=== PATIENT | female | born 1985 | race Caucasian/White ===

== ENCOUNTER → 2016-12-21 | Outpatient (CLI) | payer OTHER ==
[~2016-12-21] MED LIST: DEPO-PROVER150 MG/M1 IM
== END ==
LOC: COL.RAD 10:34
DX: M50.322 Other cervical disc degeneration at C5-C6 level (principal)

== ENCOUNTER → 2016-12-21 | Outpatient (CLI) | payer OTHER ==
[2016-12-21 17:35] LABS: BASO # 0.1 (0.0-0.2); BASO % 0.6 % (0.0-2.0); EOS # 0.2 (0.0-0.7); EOS % 1.4 % (0-4.0); GRAN # 6.9 (1.4-6.5); GRAN % 64.8 % (42.2-75.2); HEMATOCRIT 42.4 % (37.0-47.0); HEMOGLOBIN 13.7 g/dl (12.5-16.0); LYMPH # 2.9 (1.2-3.4); LYMPH % 27.2 % (20.0-51.0); MEAN CELL VOLUME 95 fl (80.0-100.0); MEAN CORPUSCULAR HEMOGLOBIN 31 pg (27.0-31.0); MEAN CORPUSCULAR HGB CONC 32 g/dl (33.0-37.0); MEAN PLATELET VOLUME 10.4 fl (7.4-10.4); MONO # 0.6 (0.1-0.6); MONO % 5.7 % (1.7-9.3); PLATELET COUNT 289 K/mm3 (130-400); RED BLOOD COUNT 4.45 M/mm3 (4.10-5.30); REDCELL DISTRIBUTION WIDTH-CV 12.3 % (11.5-14.5); WHITE BLOOD COUNT 10.7 K/mm3 (4.8-10.8)
[2016-12-21 18:18] LABS: ADJUSTED CALCIUM 9.5 mg/dL (8.4-10.2); ALBUMIN 4.6 gm/dL (3.5-5.0); BILIRUBIN,TOTAL 0.6 mg/dL (0.0-1.0); CREATININE, serum 0.58 mg/dL (0.52-1.25); POTASSIUM 4.4 mmol/L (3.4-5.0)
[2016-12-21 18:48] LABS: THYROID STIMULATING HORMONE 2.45 uIU/mL (0.465-4.680)
== END ==
LOC: ZLAB.FHCC 13:20
DX: Z01.89 Encounter for other specified special examinations (principal)

== ENCOUNTER → 2017-03-23 | Outpatient (CLI) | payer OTHER ==
[2017-03-23 17:17] LABS: BASO # 0.1 (0.0-0.2); BASO % 0.6 % (0.0-2.0); EOS # 0.2 (0.0-0.7); EOS % 1.7 % (0-4.0); GRAN # 5.9 (1.4-6.5); GRAN % 60.6 % (42.2-75.2); HEMATOCRIT 39.7 % (37.0-47.0); HEMOGLOBIN 13.1 g/dl (12.5-16.0); LYMPH # 2.9 (1.2-3.4); LYMPH % 29.5 % (20.0-51.0); MEAN CELL VOLUME 92 fl (80.0-100.0); MEAN CORPUSCULAR HEMOGLOBIN 30 pg (27.0-31.0); MEAN CORPUSCULAR HGB CONC 33 g/dl (33.0-37.0); MEAN PLATELET VOLUME 9.8 fl (7.4-10.4); MONO # 0.7 (0.1-0.6); MONO % 7.3 % (1.7-9.3); PLATELET COUNT 338 K/mm3 (130-400); RED BLOOD COUNT 4.31 M/mm3 (4.10-5.30); REDCELL DISTRIBUTION WIDTH-CV 12.3 % (11.5-14.5); WHITE BLOOD COUNT 9.8 K/mm3 (4.8-10.8)
[2017-03-23 17:40] LABS: ERYTHROCYTE SEDIMENTATION RATE 8 mm/hr (0-20)
== END ==
LOC: COL.LAB 16:35 → COL.RAD 16:35
DX: M50.322 Other cervical disc degeneration at C5-C6 level (principal)

== ENCOUNTER 2020-01-13 21:26 | Emergency (ER) | payer SELFPAY ==
[~2020-01-13] VITALS: Ht 172.7 cm; Wt 72.7 kg
[2020-01-13 21:40] VITALS: BP 115/70; TEMP 97.8
[2020-01-13 22:02] LABS: COLLECTION METHOD CLEAN CATCH
[2020-01-13 22:14] LABS: MUCOUS Present /lpf; PH 8 (5-8); SQUAMOUS EPITHELIAL 0-2 /hpf; URINE APPEARANCE Clear; URINE BACTERIA Rare /hpf; URINE BILIRUBIN Negative (NEGATIVE); URINE BLOOD 1+ (NEGATIVE); URINE COLOR Straw; URINE GLUCOSE Negative (NEGATIVE); URINE KETONE Negative (NEGATIVE); URINE LEUKOCYTE ESTERASE 2+ (NEGATIVE); URINE NITRATE Negative (NEGATIVE); URINE PROTEIN(semi-quant) Negative (NEGATIVE); URINE RBC 0-2 /hpf; URINE UROBILINOGEN Negative (NEGATIVE)
[2020-01-13] MEDS ORDERED: AMOXICILLIN 8751 TAB PO (23:36)
[2020-01-13 23:58] LABS: BASO # 0.1 (0.0-0.2); BASO % 0.5 % (0.0-2.0); EOS # 0.3 (0.0-0.7); EOS % 1.8 % (0-4.0); GRAN # 9.7 (1.4-6.5); GRAN % 62.3 % (42.2-75.2); HEMATOCRIT 39.2 % (37.0-47.0); LYMPH # 4.2 (1.2-3.4); LYMPH % 26.9 % (20.0-51.0); MEAN CELL VOLUME 92 fl (80.0-100.0); MEAN CORPUSCULAR HEMOGLOBIN 30 pg (27.0-31.0); MEAN CORPUSCULAR HGB CONC 33 g/dl (33.0-37.0); MEAN PLATELET VOLUME 9.8 fl (7.4-10.4); MONO # 1.3 (0.1-0.6); PLATELET COUNT 339 K/mm3 (130-400); RED BLOOD COUNT 4.27 M/mm3 (4.10-5.30); REDCELL DISTRIBUTION WIDTH-CV 13.2 % (11.5-14.5)
[2020-01-14 00:08] LABS: BILIRUBIN,TOTAL 0.1 mg/dL (0.0-1.0); CALCIUM 9.3 mg/dL (8.4-10.2); CREATININE, serum 0.42 (0.52-1.25); POTASSIUM 3.9 mmol/L (3.4-5.0); TOTAL PROTEIN 7.6 gm/dL (6.4-8.2)
[2020-01-14 00:16] LABS: ALBUMIN 4.3 gm/dL (3.5-5.0)
[2020-01-14 01:09] VITALS: PULSE 76
== END 2020-01-14 01:09 | disposition home or self-care (01) ==
LOC: COL.ER 21:26
PROVIDERS: Emergency Medicine
DX: N39.0 Urinary tract infection, site not specified (principal)
CPT/HCPCS: A4216; J0696; J2765; J7030

== ENCOUNTER 2020-08-11 18:03 | Outpatient (CLI) | payer MEDICAID ==
[~2020-08-11] VITALS: Ht 157.5 cm; Wt 84.1 kg
[~2020-08-11 18:03] MED LIST changes: +AMOXICILLIN 8751 TAB PO; +PRENATAL TABLET PO
--- NOTE | 2020-08-11 18:15 | NUR ---
Pt arrived on unit ambulatory, escorted by significant other and with complaints of decreased movement. Pt also reports occasional contractions but denies any leaking of fluid and/or vaginal bleeding. EFM and toco monitors started. Vital signs WNL. During assessment pt reports issues with vomiting for the last 2 days and only able to keep small amounts of water and fruit down. Pt reports no one else in the household is sick.
[2020-08-11 18:29] VITALS: BP 125/65; PULSE 88; TEMP 98.3
[2020-08-11 19:15] VITALS: BP 122/71; PULSE 88
--- NOTE | 2020-08-11 20:15 | NUR ---
Orders for discharge home received. Discharge instructions reviewed with pt and at the bedside. Both verbalized an understanding, agreed with the plan and state no questions or concerns at this time.
== END 2020-08-11 20:40 | disposition home or self-care (01) ==
LOC: LDRO 18:03 → LDR 19:19 → LDRO 20:40
DX: O36.8131 Decreased fetal movements, third trimester, fetus 1 (principal); Z3A.39 39 weeks gestation of pregnancy
CPT/HCPCS: J2405; J7120

== ENCOUNTER 2020-08-17 09:05 | Inpatient (IN) | payer MEDICAID ==
[~2020-08-17] VITALS: Ht 160 cm; Wt 84.1 kg
[2020-08-17] VITALS (54 sets, daily range): BP systolic 104–182; BP diastolic 54–90; PULSE 68–108; TEMP 97.4–98.2
--- NOTE | 2020-08-17 07:30 | NUR ---
0715- 40.2 G3L2 arrives on unit for scheduled IOL. Ambulatory to LDR1 with spouse. Oriented to room. Instructed to change into gown. 0730- Patient resting in wedge left position. EFM explained and applied. Patient denies any LOF, VB, or regular contractions. Reports normal movement. 0738- IV started in left wrist. Routine labs obtained via IV start site. LR infusing. OB assessment completed, and consent forms explained and signed using traffic warehouse supervisor. Number [id number]. 0830- Pitocin explaned and started at 2mu per protocol.
[2020-08-17 08:38] LABS: BASO % 0.3 % (0.0-2.0); EOS # 0.1 (0.0-0.7); GRAN # 8.1 (1.4-6.5); GRAN % 69.6 % (42.2-75.2); HEMATOCRIT 37.5 % (37.0-47.0); HEMOGLOBIN 12.5 g/dl (12.5-16.0); LYMPH # 2.7 (1.2-3.4); LYMPH % 23.2 % (20.0-51.0); MEAN CELL VOLUME 92 fl (80.0-100.0); MEAN CORPUSCULAR HEMOGLOBIN 31 pg (27.0-31.0); MEAN CORPUSCULAR HGB CONC 33 g/dl (33.0-37.0); MEAN PLATELET VOLUME 10.2 fl (7.4-10.4); MONO # 0.7 (0.1-0.6); MONO % 5.6 % (1.7-9.3); PLATELET COUNT 279 K/mm3 (130-400); RED BLOOD COUNT 4.08 M/mm3 (4.10-5.30); REDCELL DISTRIBUTION WIDTH-CV 13.6 % (11.5-14.5)
--- NOTE | 2020-08-17 14:15 | NUR ---
1415- Patient requesting epidural. LR bolus started. 1425- Erma Sarmiento DARKROOM TECHNICIAN notified patient requesting epidura. Patient assisted to sit on edge of bed. 1445- Erma Sarmiento CRNA at bedside for epidural placement. 1455- Test dose administered by Erma Sarmiento CRNA. See vital sign flow record. 1505- Patient repositioned wedge left. Safety precautions reviewed with patient who verbalizes understanding. Resting with call light within reach. 1530- Edwards placed. SVE 5/80/-2. Carole care provided and patient wedge right with left leg in stirrups. Denies questions or needs at this time. Resting peacefully with call light within reach.
--- NOTE | 2020-08-17 15:45 | NUR ---
1545- Intermittent late decels. Patient repositoined. Will cont. to monitor. 1615- Intermittent late and early decels. Patient repositioned. Will cont. to monitor. Dr. Murphy remains on nursing unit.
--- NOTE | 2020-08-17 16:45 | NUR ---
3857- Recurrent lates noted with contractions. Patient repositioned. LR bolus initiated. RN remains at bedside. Will cont. to monitor.
--- NOTE | 2020-08-17 17:00 | NUR ---
1700- Intermittent late and early decels noted. Patient repositioned. Will continue to monitor.
--- NOTE | 2020-08-17 17:47 | NUR ---
1747- Intermittent variable and early decels noted. SVE 10100/0. Roles updated on patient. See physician notification. compounding scaler and nursery updated. 1800- Roles at bedside for delivery. Edwards catheter removed. Patient repositioned in footplates. Patient instructed on pushing. 180- Patient begins to push with contractions with Dr. Murphy at bedside. 1810- Bedside report given to Kim WELDON who assumes care of patient at this time.
--- NOTE | 2020-08-17 18:10 | NUR ---
181- Report received. Care assumed. Pt continuing to pushing with Dr. Murphy at the bedside. 1815- of female . placed on mom's abdomen. Cords clamped and cut. Care of the given to nursery RN at the bedside. 1820- of placenta. Moderate amount of lochia. Fundus firm with massage per Dr. Murphy. Pitocin started at 333ml/hr per order and protocol. 183- Methergine IM x1 given per order. See EMAR for details.
--- NOTE | 2020-08-17 21:00 | NUR ---
Pt up to the bathroom with assistance and without complications. Pt was able to void. Carole-care done. Pt transferred to room 208 via wheelchair. Oriented to room and bed. Call light within reach. Plan of care reviewed with pt and at the bedside.
[2020-08-18 02:30] VITALS: BP 123/59; PULSE 88; TEMP 97.6
[2020-08-18 07:45] VITALS: BP 126/55; PULSE 91; TEMP 97.8
[2020-08-18] MEDS ORDERED: IBU600 MG PO (08:56)
[2020-08-18] MEDS ORDERED: PERCOCET 325 MG1 TA2 PO (08:56)
--- NOTE | 2020-08-18 10:21 | NUR ---
Initial visit; Parents thanked for offering congratulations for the of their daughter. [employer] Supervisor thanked family for choosing our hospital.
[2020-08-18 12:45] VITALS: BP 125/68; PULSE 78; TEMP 97.6
[2020-08-18 17:20] VITALS: BP 103/53; PULSE 79
[2020-08-18 20:00] VITALS: BP 120/65; PULSE 98; TEMP 98.3
[2020-08-19 04:00] VITALS: BP 128/69; PULSE 79; TEMP 98.3
[2020-08-19 08:00] VITALS: BP 111/67; PULSE 92; TEMP 98.4
--- NOTE | 2020-08-19 08:00 | NUR ---
Patient reports feeling of numbness in her right hand and arm. Patient able to squeeze this nurses hand and full range of motion noted. Dr. Murphy in room and report to Dr. Murphy.
--- NOTE | 2020-08-19 10:45 | NUR ---
Patient discharge instructions reviewed with her and . Appointment reviewed. Script for percocet given and explained motrin script to pickling operator at pharmacy. Patient understands.
== END 2020-08-19 11:05 | disposition home or self-care (01) | DRG 806 ==
LOC: OB 09:05 → LDR 09:05 → OB 11:18
PROVIDERS: ADMIT Obstetrics & Gynecology
PROC: 10E0XZZ Delivery of Products of Conception, External Approach (ICD-10-PCS; principal; 2020-08-17)
PROC: 10907ZC Drainage of Amniotic Fluid, Therapeutic from Products of Conception, Via Natural or Artificial Opening (ICD-10-PCS; 2020-08-17)
DX: O48.0 Post-term pregnancy (principal); O72.1 Other immediate postpartum hemorrhage; Z37.0 Single live birth; O34.13 Maternal care for benign tumor of corpus uteri, third trimester; D25.9 Leiomyoma of uterus, unspecified; Z3A.40 40 weeks gestation of pregnancy
CPT/HCPCS: J2210; J2590; J7120

== ENCOUNTER 2021-01-30 18:14 | Observation (INO) | payer MEDICAID ==
[~2021-01-30] VITALS: Ht 160 cm; Wt 71.8 kg
[~2021-01-30 18:14] MED LIST changes: +IBU600 MG PO; +PERCOCET 325 MG1 TA2 PO
[2021-01-30 19:52] LABS: BASO # 0.1 (0.0-0.2); BASO % 0.5 % (0.0-2.0); EOS # 0.8 (0.0-0.7); EOS % 4.3 % (0-4.0); GRAN # 14.7 (1.4-6.5); GRAN % 79.4 % (42.2-75.2); HEMOGLOBIN 11.7 g/dl (12.5-16.0); LYMPH % 10.9 % (20.0-51.0); MEAN CELL VOLUME 90 fl (80.0-100.0); MEAN CORPUSCULAR HEMOGLOBIN 29 pg (27.0-31.0); MEAN CORPUSCULAR HGB CONC 33 g/dl (33.0-37.0); MEAN PLATELET VOLUME 9.4 fl (7.4-10.4); MONO # 0.8 (0.1-0.6); MONO % 4.5 % (1.7-9.3); PLATELET COUNT 405 K/mm3 (130-400); RED BLOOD COUNT 4.01 M/mm3 (4.10-5.30); REDCELL DISTRIBUTION WIDTH-CV 12.6 % (11.5-14.5)
[2021-01-30 20:09] LABS: ALANINE AMINOTRANSFERASE 55 U/L (4-34); ALBUMIN 4.2 gm/dL (3.5-5.0); ALKALINE PHOSPHATASE 148 U/L (50-136); ANION GAP 11 mmol/L (7-16); AST,SGOT 43 U/L (15-37); BILIRUBIN,TOTAL < 0.1 mg/dL (0.0-1.0); BLOOD UREA NITROGEN 9 mg/dL (7-17); CALCIUM 9.4 mg/dL (8.4-10.2); CARBON DIOXIDE 25 mmol/L (22-30); CHLORIDE 101 mmol/L (98-107); CREATININE, serum 0.62 (0.52-1.25); GLUCOSE 129 mg/dL (74-106); SODIUM 137 mmol/L (137-145); TOTAL PROTEIN 8.2 gm/dL (6.4-8.2)
[2021-01-30 20:10] LABS: COLLECTION METHOD CLEAN CATCH
[2021-01-30 20:15] LABS: PH 6 (5-8); URINE APPEARANCE Hazy; URINE BACTERIA Rare /hpf; URINE BILIRUBIN Negative (NEGATIVE); URINE BLOOD 1+ (NEGATIVE); URINE COLOR Yellow; URINE GLUCOSE Negative (NEGATIVE); URINE KETONE Negative (NEGATIVE); URINE LEUKOCYTE ESTERASE 1+ (NEGATIVE); URINE NITRATE Negative (NEGATIVE); URINE PROTEIN(semi-quant) Negative (NEGATIVE); URINE RBC 0-2 /hpf; URINE UROBILINOGEN Negative (NEGATIVE)
[2021-01-30 20:19] LABS: C-REACTIVE PROTEIN 16.5 mg/dL (0.0-0.9)
[2021-01-30 23:45] VITALS: BP 118/67; PULSE 85; TEMP 98.1
[2021-01-31] VITALS (13 sets, daily range): BP systolic 90–121; BP diastolic 48–59; PULSE 65–98; TEMP 98.2–100.9
--- NOTE | 2021-01-31 07:30 | NUR ---
PT TO OPERATING ROOM AT THIS TIME. REPORT GIVEN TO OR NURSE ROSA
[2021-01-31] MEDS ORDERED: CEPHALEXIN500 M1 PO (08:26)
--- NOTE | 2021-01-31 08:40 | NUR ---
PT BACK TO ROOM AFTER DISCHARGE FROM OPERATING ROOM. PT SLEEPY. AWAKES TO COMMANDS. DRESSING C/D/I. SPOKE WITH SON WHO IS PRE SCHOOL TEACHER AND NOTIFIED HIM OF PT'S STATUS AFTER SURGERY, PLAN FOR DISCHARGE AFTER LUNCH. QUESTIONS ANSWERED.
--- NOTE | 2021-01-31 08:54 | NUR ---
REMAINS SLEEPY BUT AROUSES WHEN THIS RN COMES IN ROOM.
--- NOTE | 2021-01-31 09:10 | NUR ---
PT CONTINUES TO SLEEP
--- NOTE | 2021-01-31 09:40 | NUR ---
PT REPORTING PAIN 7/10. ONE PERCOCET AND ONE MOTRIN GIVEN. WATER AND CRACKERS GIVEN WELL. BREAKFAST ORDERED.
--- NOTE | 2021-01-31 10:10 | NUR ---
PT PUMPING AT THIS TIME. SPOKE WITH CESAR MIRANDA, WHO ADVISED PT DOES NOT NEED TO DUMP HER BREASTMILK AFTER PUMPING.
== END 2021-01-31 17:09 | disposition home or self-care (01) ==
LOC: COL.ER 18:14 → OB 22:32
PROVIDERS: Nurse Practitioner; ADMIT Surgery
DX: N61.1 Abscess of the breast and nipple (principal); Z79.899 Other long term (current) drug therapy; Z79.891 Long term (current) use of opiate analgesic
CPT/HCPCS: G0378; J0690; J1170; J2270; J2405; J2704; J3010; J7030; J7120